=== PATIENT | male | born 1955 | race Caucasian/White ===

== ENCOUNTER → 2017-05-31 | Outpatient (CLI) | payer OTHER ==
[~2017-05-31] MED LIST: IOPAMIDOL (ISOVUE-300) 150 ML BTL ONE
== END ==
LOC: FIMAGING 10:45
PROVIDERS: ATTEND Internal Medicine Cardiovascular Disease
DX: K76.9 Liver disease, unspecified (principal); N28.1 Cyst of kidney, acquired
CPT/HCPCS: Q9967

== ENCOUNTER 2017-06-08 07:46 | Day surgery (SDC) | payer OTHER ==
[2017-06-08] MEDS ORDERED: ASPIRIN EC 325 MG TAB PO ONE ×2 (07:50→08:09)
[2017-06-08] MEDS ORDERED: NS 1,000 ML IV ONE (07:50)
[2017-06-08] MEDS ORDERED: diphenhydrAMINE 25 MG CAP PO ONE ×2 (07:50→08:09)
[2017-06-08] MEDS ORDERED: FAMOTIDINE 20 MG TAB PO ONE (07:50)
[2017-06-08] MEDS ORDERED: DIAZEPAM 5 MG TAB PO ONE (07:50)
--- NOTE | 2017-06-08 08:06 | CPEKG ---
Heart Rate: 83 RR Interval: 723 P-R Interval: 236 QRSD Interval: 112 QT Interval: 400 QTC Interval: 470 P Clinton: 70 QRS Clinton: -58 T Wave Clinton: 110 EKG Severity - ABNORMAL ECG - EKG Impression: SINUS RHYTHM EKG Impression: FIRST DEGREE AV BLOCK EKG Impression: INCOMPLETE LEFT BUNDLE BRANCH BLOCK EKG Impression: PROBABLE LVH WITH SECONDARY REPOL ABNRM Electronically Signed By: Diana Lizama 08-Jun-2017 11:18:14
[2017-06-08] MEDS ORDERED: FAMOTIDINE 20 MG TAB ONE (08:09)
[2017-06-08] MEDS ORDERED: DIAZEPAM 5 MG TAB ONE (08:10)
[2017-06-08 08:17] LABS: PLATELET COUNT 246 10^3/uL (150-400)
[2017-06-08] MEDS ORDERED: LIDOCAINE 1% 300 MG/30 ML SDV ONE (08:21)
[2017-06-08] MEDS ORDERED: VERAPAMIL 5 MG/2 ML VIAL ONE (08:22)
[2017-06-08] MEDS ORDERED: MIDAZOLAM 2 MG/2 ML VIAL ONE (08:22)
[2017-06-08] MEDS ORDERED: IOPAMIDOL (ISOVUE-370) 150 ML BTL IV ONE (08:22)
[2017-06-08] MEDS ORDERED: HEPARIN 10,000 UNIT/10 ML MDV (1,000 UNIT/ML) ONE (08:22)
[2017-06-08] MEDS ORDERED: fentaNYL 100 MCG/2 ML INJ ONE (08:22)
[2017-06-08 08:26] LABS: INR 0.98 (0.83-1.16); PROTIME(PATIENT) 13.2 SEC (12.0-15.0)
--- NOTE | 2017-06-08 09:11 | PDPROPOC ---
Sedation Plan of Care Sedation Plan of Care: vital signs stable, mental status noted, patient educated of risks, benefits, alternatives, patient can tolerate sedation ASA Classification: ASA 2 Planned drugs: fentanyl, midazolam Mallampati Score: Class 3 Mallampati Reference Image: Patient passed 3-3-2 rule?: Yes
--- NOTE | 2017-06-08 09:11 | PDHPUP ---
History & Physical Update H&P update statement: This history and physical update is based on an assessment of the patient which was completed after admission or registration (within 24 hours), but prior to the surgery/procedure. H&P update: H&P reviewed & patient examined, no change in patient's condition since H&P completed
--- NOTE | 2017-06-08 09:48 | PDDXCAT ---
Diagnostic Cath Note - . Date: 06/08/17 Marine Mechanic: Alia Indication: other (CCC Class II angina, Abnormal stress test) - Procedure Access: right wrist Procedure: left heart catheterization, coronary angiography, left ventriculogram , other (abdominal aortogram) - Materials Left Heart Cath size: 5F Left Heart Cath materials: standard multipack (JL4, JR4, pigtail) - Findings-Left Heart Catheterization LM: The LM is 6mm in size. It trifucrcates into an LAD, Ramus, and circumflex system. There is 60% stenosis of the ramus intermedius branch. LAD: Threre is a 50% stenosis at the level of a prominant septal takeoff. The septal ostium has a 60% stenosis at its takeoff. The LAD becomes a small intramyocardial portion and exits the interventricular sulcus to go more intralaterally. LCX: The circumflex is 4mm in size. There is JARON III flow throughout. No flow limiting obstruction. It gives rise to 2 important obtuse marginal branches that come off distally. RCA: The RCA is dominant and gives rise to the posterior descending artery. EDP: 19mmHg LVEF: The EF is 65%. Wall motion: On the LV gram there is normal LV systolic funstion. The EF is 65% . There is no resting segmental wall motion abnormalities. The visualized portion of the thoracic aorta reveals three sinius of valsalva most consistent with a trileaflet valve. There is no gradient on pullback. Complications: None. Estimated blood loss: <50ml (CCC Class II angina, Stress test) Assessment: Tortuosity involving the right radial artery in the proximal portion of the forearm. Right radial axis would not be recommended in the future because of this tortuosity. The patient underwent abdominal aortogram to evaluate the renal ostia and rule out renal artery stenosis. There was no evidence of flow limiting plaque involving the renal artery origins on either right or left side. Incidentally noted was atherosclerotic plaque in the aorta distal to the renal artery takeoff. Plan: The patient has non-flow limiting coronary disease that should be treated medically to achieve a non-HDL Cholesterol of less than 100 mg/dL and anti- platelet therapy with ASA is also recommends specifically a dose of 162 mg per day. His BP also needs to be controlled for a goal systolic pressure of less than 130 mmHg. He has severe systemic hypertension. The patient will need an MRI of the abdomen to further evaluate the hepatic and splenic lesion noted on CT. Also, incidentally noted on abdominal aortogram was a very large blood vessel above renal artery takeoff that appears to go to a tangle of blood vessels in the spleen which is of unclear significance and will require further radiology evaluation. Intervention: None. Patient Problems: Problems Problem Status Onset Coronary artery disease Acute Hypertension Acute
[2017-06-08] MEDS ORDERED: ONDANSETRON 4 MG/2 ML VIAL IVP PRN (10:41)
[2017-06-08] MEDS ORDERED: OXYCODONE/APAP 5/325 TAB PO PRN (10:41)
[2017-06-08] MEDS ORDERED: ATROPINE SULFATE 1 MG/10 ML SYR IVP PRN (10:41)
[2017-06-08] MEDS ORDERED: NITROGLYCERIN 0.4 MG BTL SL PRN (10:41)
[2017-06-08] MEDS ORDERED: HYDROCODONE/APAP 5/325 TAB PO PRN (10:41)
== END 2017-06-08 13:40 | disposition home or self-care (01) ==
LOC: FCATH 07:46
PROVIDERS: ATTEND Internal Medicine Cardiovascular Disease
DX: I25.119 Atherosclerotic heart disease of native coronary artery with unspecified angina pectoris (principal); R94.31 Abnormal electrocardiogram [ECG] [EKG]; I10 Essential (primary) hypertension; R91.1 Solitary pulmonary nodule; R31.9 Hematuria, unspecified; E34.9 Endocrine disorder, unspecified; E75.22 Gaucher disease
CPT/HCPCS: 75625; 93005; 93458; C1769; J1644; J2250; J3010; Q9967

== ENCOUNTER → 2017-07-19 | Outpatient (CLI) | payer OTHER ==
[~2017-07-19] MED LIST changes: +GADOBUTROL 10 ML VIAL IVP ONE; -IOPAMIDOL (ISOVUE-300) 150 ML BTL ONE
== END ==
LOC: FIMAGING 13:07
PROVIDERS: ATTEND Internal Medicine Cardiovascular Disease
DX: D18.03 Hemangioma of intra-abdominal structures (principal); D73.89 Other diseases of spleen; N28.1 Cyst of kidney, acquired
CPT/HCPCS: A9585